=== PATIENT | male | born 1935 | race Caucasian/White ===

== ENCOUNTER 2020-10-06 08:10 | Outpatient (CLI) | payer OTHER, SELFPAY ==
--- NOTE | 2020-10-06 08:15 | CT_ITS ---
WS: [id number] CT scan of the abdomen and pelvis with Oral and IV contrast. Initial CT abdomen is performed without contrast. Additional two-dimensional coronal and sagittal reconstruction was performed. 10/06/2020 Clinical Data: ABNORMAL XRAY OF LUMBAR SPINE Comparison: None. DLP: 1709.[address] scans at [facility] use at least one of these dose optimization techniques: automat ed exposure control; mA and/or kV adjustment per patient size (includes targeted exams where dose is matched to clinical indication); or iterative reconstruction. Findings: The lower lungs show no nodules, masses or effusions. Is a small hiatal hernia. The liver, gallbladde r, spleen, adrenal glands and pancreas are normal. The kidneys show equal bilateral contrast excretion with bilateral cortical cysts, largest of which i n the posterior aspect of the left kidney is 5.6 cm. There is a central nonobstructing 1.0 cm left re nal calculus. No hydronephrosis or masses are seen. 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 There is an aorti c stent graft extending from the infrarenal aorta into the common iliac arteries. No endoleak is seen .. No appendicitis or diverticulitis is seen. Oral contrast is in the colon and small bowel and there is no bowel dilatation. No abscess, adenopathy, ascites, mass, obstruction or free air is seen. The bladder is unremarkable. No inguinal hernia is seen. The bones of the lower thorax, lumbar spine, pelvis, and hips demonstrate no metastatic disease. 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 CT/CT abdomen pelvis wo/w [id number] Impression: 1. Aortic stent graft with no endoleak. 2. Multiple bilateral renal cysts. 3. Nonobstructing central 1.0 cm left renal calculus. 4. Osteoarthritic change of the lower thoracic and lumbar vertebral bodies but no bony metastatic disease is seen.
[2020-10-06] MEDS: iohexol 300 mg/mL 50 mL Btl PO (08:33)
[2020-10-06] MEDS: iodixanol 320 mg/mL 100mL Btl IV (09:30)
== END 2020-10-06 08:11 | disposition home or self-care (01) ==
PROVIDERS: Visit Provider Family Medicine
DX: R93.89 Abnormal findings on diagnostic imaging of other specified body structures (principal); N28.1 Cyst of kidney, acquired; N20.0 Calculus of kidney
CPT/HCPCS: 74178; Q9967

== ENCOUNTER → 2022-02-08 10:33 | Outpatient (BNVA) | payer MEDICARE, SELFPAY | PROVIDERS: PCP Family Medicine; Visit Provider Family Medicine | DX: I10 Essential (primary) hypertension (principal) | CPT/HCPCS: 80053; 85025 ==

== ENCOUNTER → 2022-09-25 10:50 | Outpatient (BNVA) | payer MEDICARE, SELFPAY | PROVIDERS: PCP Family Medicine; Visit Provider Family Medicine | DX: I10 Essential (primary) hypertension (principal); Z23 Encounter for immunization; Z78.9 Other specified health status; Z85.46 Personal history of malignant neoplasm of prostate; N45.1 Epididymitis | CPT/HCPCS: 80053; 85025 ==

== ENCOUNTER 2023-01-08 14:20 | Outpatient (CLI) | payer MEDICARE, SELFPAY ==
[2023-01-08 15:51] LABS: Basophils # 0.1 10^3/uL (0.0-0.1); Basophils % 0.9 %; Eosinophils # 0.2 10^3/uL (0.0-0.8); Eosinophils % 2.5 %; Hematocrit 34.3 % (42.0-52.0); Hemoglobin 10.9 g/dL (11.7-16.6); Lymphocytes # 1.3 10^3/uL (0.8-4.8); Lymphocytes % 20.5 %; Mean Corpuscular HGB Conc 31.8 g/dL (30.0-36.0); Mean Corpuscular Hemoglobin 28.2 pg (28.0-34.0); Mean Corpuscular Volume 88.9 fl (80-94); Mean Platelet Volume 10.1 fL (7.4-10.4); Monocytes # 0.8 10^3/uL (0.2-0.9); Monocytes % 12.8 %; Neutrophils # 3.96 10^3/uL (1.8-7.7); Neutrophils % 62.7 %; Nucleated Red Blood Cells % 0 %; Platelet Count 162 10^3/cmm (130-400); Red Blood Count 3.86 10^6/uL (4.1-5.3); Red Cell Distribution Width 13.8 % (12.1-15.1); White Blood Count 6.3 10^3/uL (4.0-10.0)
[2023-01-08 16:16] LABS: Calcium 9.1 mg/dL (8.5-10.5)
[2023-01-08 16:22] LABS: Parathyroid Hormone 97.8 pg/mL (15-65)
[2023-01-08 16:51] LABS: 25 Hydroxy Vitamin D 19 ng/mL (30-100); Albumin Level 3.8 g/dL (3.5-5.2); Anion Gap 13.7 (5-19); Blood Urea Nitrogen 30 mg/dL (8-23); Calcium 9.3 mg/dL (8.5-10.5); Carbon Dioxide 27 mmol/L (22-29); Chloride 105 mmol/L (98-107); Glucose 91 mg/dL (65-115); Phosphorus 3.7 mg/dL (2.5-4.5); Potassium 4.7 mmol/L (3.5-5.1); Sodium 141 mmol/L (136-145)
[2023-01-08 17:03] LABS: Protein Urine 3+ (Negative); Urine Appearance Clear (CLEAR); Urine Color Yellow (Yellow); pH Urine 5 (5-7)
[2023-01-08 17:04] LABS: Add Urine Culture? No; Bilirubin Urine Neg (Negative); Blood Urine Neg (Negative); Glucose Urine UA Norm (Normal); Ketones Urine 1+ (Negative); Leukocyte Esterase Urine Negative (Negative); Nitrate Urine Negative (Negative); RBC Urine RARE /hpf (0-2); Urobilinogen Urine 1 mg/dL (Negative); WBC Urine RARE /hpf (0-5)
[2023-01-08 17:15] LABS: Creatinine Urine, Random 198 mg/dL (39-259)
[2023-01-08 17:37] LABS: Microalbum Creatinine Ratio Ur 556 mg/dL (0-20); Microalbumin Random Urine 110 ug/dL (0-20)
== END 2023-01-08 14:21 | disposition home or self-care (01) ==
LOC: LAB 14:34
PROVIDERS: PCP Family Medicine; Visit Provider Internal Medicine Nephrology
DX: Z01.89 Encounter for other specified special examinations (principal)
CPT/HCPCS: 80069; 81001; 82044; 82306; 82310; 83970; 85025

== ENCOUNTER 2023-03-18 19:06 | Emergency (ER) | payer OTHER, SELFPAY ==
[2023-03-18 19:20] VITALS: BP 240/90; PULSE 54; RESP 16; TEMP 36.4; O2SAT 99; BMI 29.7
--- NOTE | 2023-03-18 19:47 | XRR_ITS ---
PROCEDURE INFORMATION: Exam: XR Chest Exam date and time: 03/18/2023 7:59 PM Age: 87 years old Clinical indication: Shortness of breath and other: HTN; Additional info: High blood pressure TECHNIQUE: Imaging protocol: Radiologic exam of the chest. Views: 1 view. COMPARISON: CT abdomen pelvis wo/w [id number] 10/06/2020 9:26 AM FINDINGS: Lungs: Unremarkable. No consolidation. Pleural spaces: Unremarkable. No pleural effusion. No pneumothorax. Heart/Mediastinum: Unremarkable. No cardiomegaly. Bones/joints: Unremarkable. XR/XR chest 1V portable [id number] IMPRESSION: No acute findings.
--- NOTE | 2023-03-18 19:49 | ECG_ITS ---
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 Measurements Intervals [place] Rate: 49 P: 162 [place]: 200 QRS: -27 QRSD: 101 T: 148 QT: 431 QTc: 392 Interpretive Statements ECTOPIC ATRIAL BRADYCARDIA POSSIBLE LEFT ATRIAL ENLARGEMENT [-0.1mV P-WAVE IN V1/V2] BORDERLINE LEFT AXIS DEVIATION [QRS AXIS < -20] NONSPECIFIC T-WAVE ABNORMALITY No previous ECG available for comparison Electronically Signed On 03-19-2023 14:27:40 CDT by Khanh Rivera M.D. [id number]
--- NOTE | 2023-03-18 19:55 | CTR_ITS ---
PROCEDURE INFORMATION: Exam: CT Head Without Contrast Exam date and time: 03/18/2023 8:05 PM Age: 87 years old Clinical indication: Pain; Dizziness; Headache not specified; Additional info: Headache, dizzy TECHNIQUE: Imaging protocol: Computed tomography of the head without contrast. Radiation optimization: All CT scans at this facility use at least one of these dose optimization techniques: automated exposure control; mA and/or kV adjustment per patient size (includes targeted exams where dose is matched to clinical indication); or iterative reconstruction. REPORTING DATA: Count of CT and Cardiac NM exams in prior 12 months: This patient has received 0 known CTs and 0 known cardiac nuclear medicine studies in the 12 months prior to the current study. COMPARISON: No relevant prior studies available. RADIATION DOSE METRICS: Total DLP (mGy-cm): 1017.18 FINDINGS: Brain: Mild diffuse white matter disease likely reflecting chronic microvascular ischemic changes. Cerebral ventricles: No ventriculomegaly. Paranasal sinuses: Visualized sinuses are unremarkable. No fluid levels. Mastoid air cells: Visualized mastoid air cells are well aerated. Bones/joints: Unremarkable. No acute fracture. Soft tissues: Unremarkable. CT/CT head wo con* [id number] IMPRESSION: Negative for intracranial hemorrhage or mass effect.
[2023-03-18 21:50] VITALS: BP 232/95
[2023-03-18 22:02] LABS: Basophils # 0.1 10^3/uL (0.0-0.1); Basophils % 1.2 %; Eosinophils # 0.3 10^3/uL (0.0-0.8); Eosinophils % 4.3 %; Hematocrit 36.9 % (42.0-52.0); Hemoglobin 11.6 g/dL (11.7-16.6); Lymphocytes # 1.3 10^3/uL (0.8-4.8); Lymphocytes % 20.7 %; Mean Corpuscular HGB Conc 31.4 g/dL (30.0-36.0); Mean Corpuscular Hemoglobin 27.8 pg (28.0-34.0); Mean Corpuscular Volume 88.5 fl (80-94); Mean Platelet Volume 9.9 fL (7.4-10.4); Monocytes # 0.6 10^3/uL (0.2-0.9); Monocytes % 9.8 %; Neutrophils % 63.5 %; Nucleated Red Blood Cells % 0 %; Platelet Count 176 10^3/cmm (130-400); Red Blood Count 4.17 10^6/uL (4.1-5.3); Red Cell Distribution Width 13.1 % (12.1-15.1); White Blood Count 6.5 10^3/uL (4.0-10.0)
[2023-03-18 22:19] LABS: Alanine Aminotransferase 14 U/L (0-41); Albumin Level 3.9 g/dL (3.5-5.2); Alkaline Phosphatase 73 U/L (40-130); Anion Gap 13.9 (5-19); Aspartate Amino Transferase 19 U/L (0-40); Blood Urea Nitrogen 33 mg/dL (8-23); Calcium 8.7 mg/dL (8.5-10.5); Carbon Dioxide 23 mmol/L (22-29); Chloride 106 mmol/L (98-107); Globulin 2.9 g/dL (1.3-4.6); Glucose 89 mg/dL (65-115); Osmolality Calculated 293 mOsm/kg (285-295); Potassium 4.9 mmol/L (3.5-5.1); Sodium 138 mmol/L (136-145); Total Bilirubin 0.3 mg/dL (0.15-1.2); Total Protein 6.8 g/dL (6.6-8.7)
[2023-03-18 22:30] VITALS: BP 236/97; PULSE 52; RESP 14; O2SAT 99
[2023-03-18 22:35] LABS: Troponin(5th) Baseline 32 ng/L (0-15)
[2023-03-18 22:45] LABS: NT Pro B Type Natriuretic Pept 817 pg/mL (0-450)
[2023-03-18 23:00] VITALS: BP 203/94; PULSE 52; RESP 12; O2SAT 99
[2023-03-18 23:22] VITALS: BP 213/85; PULSE 50; RESP 13; O2SAT 99
[2023-03-18] MEDS: amlodipine 10 mg Tablet PO (23:24)
[2023-03-18] MEDS: enalaprilat 1.25 mg/mL Inj IVP (23:25)
[2023-03-18] MEDS: hyDRALAzine 20 mg/mL INJ 1 mL IVP (23:25)
[2023-03-19 00:01] VITALS: BP 169/80
--- NOTE | 2023-03-19 00:12 | ECG_ITS ---
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 Measurements Intervals [place] Rate: 54 P: 37 [place]: 132 QRS: -31 QRSD: 88 T: 56 QT: 437 QTc: 416 Interpretive Statements SINUS BRADYCARDIA LEFT AXIS DEVIATION [QRS AXIS < -30] Compared to ECG 03/18/2023 21:15:53 Bradycardia, nonsinus no longer present T-wave abnormality no longer present Electronically Signed On 03-19-2023 14:32:56 CDT by Khanh Rivera M.D. [id number]
[2023-03-19 00:30] VITALS: BP 173/81; PULSE 55; RESP 19; O2SAT 98
[2023-03-19 00:42] LABS: Troponin 5 2HR 31.69 ng/L (0-15)
[2023-03-19] MEDS: hyDRALAzine 20 mg/mL INJ 1 mL 10 MG IVP (00:52)
[2023-03-19 00:55] LABS: Troponin 5 2HR Delta -0.31 ABS# (0-10)
[2023-03-19 01:00] VITALS: BP 149/58; PULSE 62; RESP 15; O2SAT 97
--- NOTE | 2023-03-19 01:14 | W.ED.HA ---
HPI - Headache General: Chief Complaint: Headache Stated Complaint: high blood pressure, DEE Time Seen by Provider: 03/18/23 22:28 Source: patient History of Present Illness: 87-year-old male complains of high blood pressure and headache this evening it has been going on several hours. He took an extra dose of his lisinopril at home to try to improve his headache and his blood pressure. No weakness, speech problems, etc. No chest pain. MD elicited complaint: headache Onset (ago): hour(s) Onset description: gradually Location: diffuse Quality & Timing: aching and throbbing Exacerbating factors: none Relieving factors: nothing Associated symptoms: Deny chest pain, confusion, cough, diaphoresis, eye pain, fever(s), lightheadedness, loss of vision, neck stiffness, numbness, paresthesias, photophobia, short of breath, syncope, vomiting or weakness Treatments prior to arrival: other Review of Systems Const: Denies: fever(s) or diaphoresis ENMT: Denies: throat pain Card: Denies: chest pain, lightheadedness or syncope Resp: Denies: dyspnea, productive cough or non-productive cough GI: Denies: abdominal pain or vomiting Neuro: Denies: confusion PFSH ED PFSH: Medical History History of prostate cancer Hypertension Social History Smoking and tobacco status: never smoked Alcohol intake: never Substance/Drug Use: never Physical Exam Const: COMMON NORMALS: no acute distress GENERAL APPEARANCE: cooperative; not ill appearing and not frail appearing HENMT: COMMON NORMALS: normocephalic, atraumatic and Normal external nose present HEAD & SCALP: normocephalic and atraumatic FACE & SINUS: normal facial exam and face symmetric NOSE: Normal external nose present Eye: COMMON NORMALS: Equal, round and reactive pupils present and EOMs intact bilaterally PUPIL: Yes Equal, round and reactive pupils present DIRECT OPHTHALMOSCOPY: No photophobia Neck/C-Spine: GENERAL: Yes trachea midline Chest: CHEST: Yes Symmetrical chest wall rise Resp: COMMON NORMALS: normal respiratory effort, No retractions, No use of accessory muscles and clear to auscultation bilaterally AUSCULTATION: clear to auscultation bilaterally Cardio: COMMON NORMALS: regular rate and regular rhythm RATE: regular rate RHYTHM: regular rhythm GI: COMMON NORMALS: Normal to inspection, nondistended, normoactive bowel sounds present Extremity: COMMON NORMALS: no pedal edema Neuro: [place] COMA SCALE: document GCS findings [place] coma scale eye opening: Spontaneous [place] coma scale verbal response: Orientated [place] coma scale motor response: Obey commands [place] coma scale total score: 15 SENSORY EXAM: Yes extremities (intact) Psych: COMMON NORMALS: speech normal SPEECH: Yes normal speech Skin: COMMON NORMALS: no rashes or lesions noted GENERAL SKIN EXAM: no rashes or lesions noted Course Vital Signs: Vital signs: Vital Signs Temperature 97.6 F 03/18/23 19:20 Pulse Rate 69 03/19/23 01:47 Respiratory Rate 19 H 03/19/23 01:47 Blood Pressure 149/67 03/19/23 01:47 Pulse Oximetry 98 03/19/23 01:47 Oxygen Delivery Me thod Room Air 03/19/23 01:00 MDM - Headache Medical Decision Making Headache improved after control of blood pressure. His creatinine is 1.9. Hemoglobin of 12. Chest x-ray is nonacute. Troponin initially was 32. Delta is -0.3. Head CT is negative for any hemorrhage or edema. EKG is nonacute. With improvement of his blood pressure he will be allowed home. We will increase his amlodipine to 10 mg daily. With worsening creatinine, blood pressure regimen may need to be changed. Lab Data 03/18/23 21:57 03/18/23 21:57 Radiology Impressions Chest X-Ray 03/18/23 19:47 IMPRESSION: No acute findings. Head CT 03/18/23 19:55 IMPRESSION: Negative for intracranial hemorrhage or mass effect. Laboratory Results WBC 6.5 10^3/uL (4.0-10.0) 03/18/23 21:57 RBC 4.17 10^6/uL (4.1-5.3) 03/18/23 21:57 Hgb 11.6 g/dL (11.7-16.6) L 03/18/23 21:57 Hct 36.9 % (42.0-52.0) L 03/18/23 21:57 MCV 88.5 fl (80-94) 03/18/23 21:57 MCH 27.8 pg (28.0-34.0) L 03/18/23 21:57 MCHC 31.4 g/dL (30.0-36.0) 03/18/23 21:57 RDW 13.1 % (12.1-15.1) 03/18/23 21:57 Plt Count 176 10^3/cmm (130-400) 03/18/23 21:57 MPV 9.9 fL (7.4-10.4) 03/18/23 21:57 Neut % (Auto) 63.5 % 03/18/23 21:57 Lymph % (Auto) 20.7 % 03/18/23 21:57 [place] % (Auto) 9.8 % 03/18/23 21:57 Eos % (Auto) 4.3 % 03/18/23 21:57 Baso % (Auto) 1.2 % 03/18/23 21:57 Neut # (Auto) 4.10 10^3/uL (1.8-7.7) 03/18/23 21:57 Lymph # (Auto) 1.3 10^3/uL (0.8-4.8) 03/18/23 21:57 [place] # (Auto) 0.6 10^3/uL (0.2-0.9) 03/18/23 21:57 Eos # (Auto) 0.3 10^3/uL (0.0-0.8) 03/18/23 21:57 Baso # (Auto) 0.1 10^3/uL (0.0-0.1) 03/18/23 21:57 Nucleated RBC % (auto) 0 % 03/18/23 21:57 Nucleated RBCs # 0.0 /100WBC 03/18/23 21:57 Sodium 138 mmol/L (136-145) 03/18/23 21:57 Potassium 4.9 mmol/L (3.5-5.1) 03/18/23 21:57 Chloride 106 mmol/L (98-107) 03/18/23 21:57 Carbon Dioxide 23 mmol/L (22-29) 03/18/23 21:57 Anion Gap 13.9 (5-19) 03/18/23 21:57 BUN 33 mg/dL (8-23) H 03/18/23 21:57 Creatinine 1.9 mg/dL (0.7-1.2) H 03/18/23 21:57 GFR Calculation Not Reportable 03/18/23 21:57 Glucose 89 mg/dL (65-115) 03/18/23 21:57 Calculated Osmolality 293 mOsm/kg (285-295) 03/18/23 21:57 Calcium 8.7 mg/dL (8.5-10.5) 03/18/23 21:57 Total Bilirubin 0.3 mg/dL (0.15-1.2) 03/18/23 21:57 AST 19 U/L (0-40) 03/18/23 21:57 ALT 14 U/L (0-41) 03/18/23 21:57 Alkaline Phosphatase 73 U/L (40-130) 03/18/23 21:57 Troponin T Baseline 32 ng/L (0-15) H 03/18/23 21:57 Troponin T 120 Minute 31.69 ng/L (0-15) H 03/19/23 00:07 Delta Troponin T -0.31 ABS# (0-10) L 03/19/23 00:07 NT-Pro-B Natriuret Pep 817 pg/mL (0-450) H 03/18/23 21:57 Total Protein 6.8 g/dL (6.6-8.7) 03/18/23 21:57 Albumin 3.9 g/dL (3.5-5.2) 03/18/23 21:57 Globulin 2.9 g/dL (1.3-4.6) 03/18/23 21:57 Discharge Plan Discharge Patient Disposition: Home Clinical Impression: Hypertension, Headache Condition: Stable Prescriptions: New amlodipine 10 mg tablet 10 mg PO DAILY Qty: 30 0RF Discontinued amlodipine 5 mg tablet 5 mg PO DAILY Qty: 30 0RF Rx Instructions: 1/2 in afternoon if BP >165/95 No Action mulit vitamin as directed lisinopril-hydrochlorothiazide 20-12.5 mg tablet 1 tab PO DAILY Qty: 90 1RF Discharge Orders: Discharge ED (Routine); Ordered 03/19/23 Ordered By: Erik Dubose Referrals: Phil Hollingsworth MD [Primary Care Provider] - 1-3 days Patient Instructions: Hypertension (ED), General Headache (ED) Activity Restrictions/Additional Instructions: Continue to take your blood pressure twice daily beginning tomorrow. Increase your amlodipine from 5 mg daily to 10 mg daily as per instructed. See your doctor, as with your kidney function, he may wish to make further changes to your blood pressure medication. Return for chest discomfort, worsening headache, weakness, mental status change, vision changes, other concerning symptoms. Coding Level of Care Code ED Automation Architect for Vini Gordon
[2023-03-19 01:47] VITALS: BP 149/67; PULSE 69; RESP 19; O2SAT 98
== END 2023-03-19 01:49 | disposition home or self-care (01) ==
PROVIDERS: Emergency Medicine; Emergency Provider Emergency Medicine; PCP Family Medicine
DX: R51.9 Headache, unspecified (principal); I10 Essential (primary) hypertension; Z85.46 Personal history of malignant neoplasm of prostate
CPT/HCPCS: 70450; 71045; 80053; 83880; 84484; 85025; 93005; 96374; 96375; 96376; 99285; J0360; J3490

== ENCOUNTER 2023-05-23 14:30 | Emergency (ER) | payer OTHER, SELFPAY ==
[2023-05-23 14:33] VITALS: BP 128/61; PULSE 76; RESP 16; TEMP 36.7; O2SAT 97
--- NOTE | 2023-05-23 14:47 | W.ED.EXTPRO ---
HPI - Extremity Problem General: Chief complaint: Extremity Problem,Nontraumatic Stated complaint: swollen feet, red and painfull Time Seen by Provider: 05/23/23 14:42 Source: patient Mode of arrival: ambulatory Limitations: no limitations History of Present Illness: 87-year-old male who states he has been having some right elbow pain over the last 2 days had some mild ankle and foot pain as well. States pain is worse with movement denies any warmth or fever he rates his pain a 5 out of 10 currently has had gout in the past feels similar. Denies any injuries Associated symptoms: Deny chest pain, fever(s) or rash Review of Systems Const: Denies: fever(s) or chills Eyes: Denies: blurry vision ENMT: Denies: throat pain or dental pain Card: Denies: chest pain Resp: Denies: dyspnea GI: Denies: abdominal pain, nausea or vomiting Musc: Reports: extremity pain; Denies: neck pain or back pain Skin/Breast: Denies: rash Neuro: Denies: headache(s) PFSH ED PFSH: Medical History History of prostate cancer Hypertension Social History Smoking and tobacco status: never smoked Alcohol intake: never Substance/Drug Use: never Physical Exam Const: COMMON NORMALS: no acute distress and patient oriented x3 HENMT: COMMON NORMALS: normocephalic and atraumatic HEAD & SCALP: normocephalic and atraumatic Eye: COMMON NORMALS: conjunctivae normal CONJUNCTIVA: Yes conjunctivae normal Neck/C-Spine: COMMON NORMALS: supple Chest: COMMONS NORMALS: normal inspection of the chest Resp: COMMON NORMALS: normal respiratory effort Cardio: COMMON NORMALS: regular rate RATE: regular rate GI: INSPECTION: Yes normal to inspection Extremity: OTHER: Some tenderness to his right elbow is not warm to touch no redness distal pulses intact right ankle has no pain currently left foot exam is normal as well Neuro: COMMON NORMALS: patient oriented x3 Psych: COMMON NORMALS: mental status grossly normal Skin: COMMON NORMALS: no rashes or lesions noted GENERAL SKIN EXAM: no rashes or lesions noted Course Vital Signs: Vital signs: Vital Signs Temperature 98.0 F 05/23/23 14:33 Pulse Rate 76 05/23/23 14:33 Respiratory Rate 16 05/23/23 14:33 Blood Pressure 128/61 05/23/23 14:33 Pulse Oximetry 97 05/23/23 14:33 Oxygen Delivery Me thod Room Air 05/23/23 14:33 MDM - Extremity (Nontraumatic) Medical Decision Making Patient presents here with joint pain mainly in his right elbow is likely arthritis versus gout joint expection is normal he has full range of motion no signs of septic joint no fever he is stable for discharge she is follow-up with PCP and return if worsening Discharge Plan Discharge Patient Disposition: Home Clinical Impression: Arthralgia Condition: Stable Prescriptions: No Action mulit vitamin as directed lisinopril-hydrochlorothiazide 20-25 mg tablet 1 tab PO DAILY Qty: 90 2RF amlodipine 10 mg tablet 10 mg PO DAILY Qty: 30 0RF Discharge Orders: Discharge ED (Routine); Ordered 05/23/23 Ordered By: Maral Armando Referrals: Phil Hollingsworth MD [Primary Care Provider] - 1-3 days Discharge Diet: Advance as tolerated Discharge Activity: Resume usual activity Patient Instructions: Arthralgia (ED) Coding Level of Care Code ED 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
[2023-05-23] MEDS: HYDROcodone-acetaminophen 5-325 mg Tablet 1 TAB PO (14:53)
[2023-05-23] MEDS: naproxen 500 mg Tablet PO (14:53)
[2023-05-23] MEDS: predniSONE 20 mg Tablet 60 MG PO (14:53)
== END 2023-05-23 15:02 | disposition home or self-care (01) ==
PROVIDERS: Emergency Provider Emergency Medicine; PCP Family Medicine
DX: M25.521 Pain in right elbow (principal); I10 Essential (primary) hypertension; Z85.46 Personal history of malignant neoplasm of prostate
CPT/HCPCS: 99283; J7512

== ENCOUNTER → 2023-07-25 10:44 | Outpatient (BNVA) | payer MEDICARE, SELFPAY | PROVIDERS: PCP Family Medicine; Visit Provider Family Medicine | DX: N18.4 Chronic kidney disease, stage 4 (severe) (principal) | CPT/HCPCS: 80069; 82306; 82310; 83970; 85025 ==

== ENCOUNTER → 2023-09-18 11:07 | Outpatient (BNVA) | payer MEDICARE, SELFPAY | PROVIDERS: PCP Family Medicine; Visit Provider Family Medicine | DX: I10 Essential (primary) hypertension (principal) | CPT/HCPCS: 80053; 85025 ==

== ENCOUNTER 2025-11-24 08:45 | Oncology outpatient (recurring) (ONCR) | payer OTHER, SELFPAY ==
[2025-11-03 12:24] LABS: Hematocrit 23.5 % (37-53); Hemoglobin 7.20 g/dL (11.27-16.99)
[2025-11-03 13:21] VITALS: BP 144/65; PULSE 64; RESP 16; TEMP 36.6; O2SAT 99
[2025-11-03 13:36] VITALS: BP 134/54; PULSE 63; RESP 16; TEMP 36.3; O2SAT 99
[2025-11-03 13:51] VITALS: BP 146/57; PULSE 58; RESP 16; TEMP 36.4; O2SAT 99
[2025-11-03 14:23] VITALS: BP 173/51; PULSE 61; RESP 16; TEMP 36.3; O2SAT 99
[2025-11-03 15:06] VITALS: BP 172/66; PULSE 63; RESP 16; TEMP 36.5; O2SAT 99
[2025-11-03 15:21] VITALS: BP 172/66; PULSE 63; RESP 16; TEMP 36.5; O2SAT 99
[2025-11-04 14:05] VITALS: BP 151/62; PULSE 67; RESP 17; TEMP 35.1; O2SAT 99
[2025-11-04 14:16] VITALS: BP 165/64; PULSE 65; RESP 18; TEMP 36.3; O2SAT 99
[2025-11-04 14:18] VITALS: BP 196/70; PULSE 61; RESP 17; TEMP 36.4; O2SAT 96
[2025-11-04 14:35] VITALS: PULSE 62; RESP 1; TEMP 36.4
[2025-11-04 15:56] VITALS: BP 194/70; PULSE 64; RESP 18; TEMP 36.6; O2SAT 100
[2025-11-17 15:02] LABS: Hematocrit 28.0 % (37-53); Hemoglobin 8.90 g/dL (11.27-16.99); Mean Corpuscular HGB Conc 31.8 g/dL (30-55); Mean Corpuscular Hemoglobin 29.5 pg (27-33); Mean Corpuscular Volume 92.7 fl (82-101); Nucleated Red Blood Cells % 0 %; Platelet Count 87 10^3/cmm (157-399); Red Blood Count 3.02 10^6/uL (3.85-5.65); White Blood Count 6.47 10^3/uL (3.29-11.43)
[2025-11-17 15:37] LABS: Alanine Aminotransferase 8 U/L (0-41); Albumin Level 3.4 g/dL (3.5-5.2); Anion Gap 17.6 (5-19); Aspartate Amino Transferase 21 U/L (0-40); Blood Urea Nitrogen 40 mg/dL (8-23); Calcium 7.9 mg/dL (8.5-10.5); Carbon Dioxide 21 mmol/L (22-29); Chloride 104 mmol/L (98-107); Globulin 2.3 g/dL (1.3-4.6); Glucose 89 mg/dL (65-115); Iron 80 ug/dL (59-158); Osmolality Calculated 295 mOsm/kg (285-295); Potassium 4.6 mmol/L (3.5-5.1); Sodium 138 mmol/L (136-145); Thyroid Stimulating Hormone 1.66 uIU/mL (0.27-4.20); Total Iron Binding Capacity 167 mcg/dl; Total Protein 5.7 g/dL (6.6-8.7); Unsaturated Iron Binding 87 ug/dL (112-347); Vitamin B12 538 pg/mL (232-1245)
[2025-11-17 16:01] LABS: Ferritin 1247 ng/mL (30-400)
[2025-11-17 16:02] LABS: Alkaline Phosphatase 1689 U/L (40-130)
[2025-11-18 06:34] LABS: PROTEIN, TOTAL 5.7 g/dL (6.1-8.1)
[2025-11-20 08:54] LABS: ALPHA 1 GLOBULIN 0.5 g/dL (0.2-0.3); ALPHA 2 GLOBULIN 0.8 g/dL (0.5-0.9); BETA 1 GLOBULIN 0.3 g/dL (0.4-0.6); BETA 2 GLOBULIN 0.4 g/dL (0.2-0.5)
--- NOTE | 2025-11-24 08:45 | NM_ITS ---
WS: [id number] NUCLEAR MEDICINE BONE SCAN Radiopharmaceutical: 25.4 Tc-99m MDP mCi IV Injection site: Antecubital Postinjection imaging delay: 1 hr CLINICAL INFORMATION: suspect prostate cancer with bone mets COMPARISON: None. 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
== END 2025-11-25 23:59 | disposition home or self-care (01) ==
LOC: ONCMED 08:50 → RAD 11-25 00:01 → ONCMED 11-25 09:39
PROVIDERS: Internal Medicine Medical Oncology; PCP Family Medicine; Visit Provider Nurse Practitioner Family
DX: C61 Malignant neoplasm of prostate (principal); C79.51 Secondary malignant neoplasm of bone; M89.8X8 Other specified disorders of bone, other site
CPT/HCPCS: 36415; 36430; 78306; 80053; 82607; 82728; 82746; 83540; 83550; 83615; 84153; 84155; 84165; 84443; 85014; 85018; 85025; 85045; 86850; 86900; 86920; 99204; A9561; J7050; P9016